=== PATIENT | female | born 1940 | race Caucasian/White ===

== ENCOUNTER 2021-10-05 14:55 | Inpatient (IN) | payer MEDICARE, OTHER ==
[~2021-10-05] VITALS: Ht 160 cm; Wt 59.0 kg
[~2021-10-05 14:55] MED LIST: ALEN70TA80 PO; CALC-1143 PO; DIVA-78 PO; DULO60CA64 PO; LEVO50TA8 PO; MELO-107 PO; MULT1TAB11 PO; OMEP40CA21 PO; OXYB-58 PO; QUET100T PO; RISP1TAB97 PO; TRAZ-182 PO; TRIA1TAB3 PO; ZOLP10TA6 PO
[2021-10-05] MEDS ORDERED: ONDA4TAB5 PO (15:56)
[2021-10-05] MEDS ORDERED: POLY15DR40 EACHEYE (15:56)
[2021-10-05] MEDS ORDERED: SENN-261 PO (15:56)
[2021-10-05] MEDS ORDERED: IBUP-1955 PO (15:56)
[2021-10-05] MEDS ORDERED: SUCR1ORA15 PO (15:56)
[2021-10-05] MEDS ORDERED: RISP0.2515 PO (15:56)
[2021-10-05] MEDS ORDERED: ZINC56.713 TP (15:56)
[2021-10-05] MEDS ORDERED: PANT40TA2 PO (15:56)
[2021-10-05] MEDS ORDERED: ACET-868 PO (15:56)
[2021-10-05] MEDS ORDERED: HYDR-3973 PO (15:56)
[2021-10-05] MEDS ORDERED: FLUT1DIS INH (15:56)
[2021-10-05] MEDS ORDERED: ALBU18HF2 IH (15:56)
[2021-10-05] MEDS ORDERED: CRAN3875 PO (15:56)
[2021-10-05] MEDS ORDERED: DOCU-141 PO (15:56)
[2021-10-05] MEDS ORDERED: MAGN400O6 PO (15:56)
[2021-10-05] MEDS ORDERED: AMIN30LI2 PO (15:56)
[2021-10-05] MEDS ORDERED: HYDROCODONE/APAP 5/325MG TABLET PO ONE (16:00)
[2021-10-05] MEDS ORDERED: IV NS 0.9% 1,000 ML BAG IV ONE (16:00)
[2021-10-05] MEDS ORDERED: HYDROCODONE/APAP 5/325MG TABLET ONE (16:10)
[2021-10-05 16:11] LABS: BASOPHILS # (AUTO) 0.1 K/uL (0.0-0.2); BASOPHILS % (AUTO) 0.9 % (0.0-2.0); EOSINOPHILS % (AUTO) 1.6 % (0.0-6.0); HEMATOCRIT 33 % (33-45); HEMOGLOBIN 10.9 g/dL (11.5-14.8); LYMPHOCYTES # (AUTO) 2.1 K/uL (0.8-4.8); LYMPHOCYTES % (AUTO) 27.1 % (20.0-44.0); MEAN CORPUSCULAR HGB CONC 33 g/dl (31.0-36.0); MEAN CORPUSCULAR VOLUME 93 fL (82-100); MONOCYTES # (AUTO) 1.3 K/uL (0.1-1.30); MONOCYTES % (AUTO) 16.2 % (2.0-12.0); NEUTROPHILS # (AUTO) 4.3 K/uL (1.8-8.9); NEUTROPHILS % (AUTO) 54.2 % (43.0-81.0); PLATELET COUNT (AUTO) 415 K/uL (150-450); RED BLOOD CELL COUNT(AUTO) 3.53 MIL/uL (4.0-5.2); WHITE BLOOD COUNT (AUTO) 7.9 K/uL (4.3-11.0)
[2021-10-05 16:31] LABS: ALANINE AMINOTRANSFERASE 17 U/L (12-78); ALBUMIN 2.8 g/dL (3.4-5.0); ALKALINE PHOSPHATASE 99 U/L (46-116); ASPARTATE AMINOTRANSFERASE 16 U/L (15-37); BILIRUBIN,DIRECT 0.1 mg/dL (0.0-0.2); BILIRUBIN,TOTAL 0.2 mg/dL (0.2-1.0); CARBON DIOXIDE 20 mmol/L (21-32); CHLORIDE 98 mmol/L (98-107); CREATININE 1.1 mg/dL (0.6-1.3); GLUCOSE 88 mg/dL (74-106); POTASSIUM 4.7 mmol/L (3.5-5.1); SODIUM SERUM 128 mmol/L (136-145); TOTAL PROTEIN, SERUM 8.4 g/dL (6.4-8.2); UREA NITROGEN, BLOOD 36 mg/dL (7-18)
[2021-10-05] MEDS ORDERED: MAGNESIUM HYDROXIDE 30 ML UDC PO PRN ×2 (17:30→18:00)
[2021-10-05] MEDS ORDERED: ACETAMINOPHEN 325 MG TABLET PO PRN ×2 (17:30→18:00)
[2021-10-05] MEDS ORDERED: SUCRALFATE 1 G/10 ML UDC PO SCH (17:30)
[2021-10-05] MEDS ORDERED: Z GUARD REMEDY 4 OZ OINT TP PRN (18:00)
[2021-10-05] MEDS ORDERED: ONDANSETRON 4 MG TAB.RAPDIS PO PRN (18:00)
[2021-10-05] MEDS ORDERED: MAG HYDROX/AL HYDROX/SIMETH 30 ML UDC PO PRN (18:00)
[2021-10-05] MEDS ORDERED: ONDANSETRON HCL/PF 4 MG/2 ML VIAL IVP PRN (18:00)
[2021-10-05] MEDS ORDERED: ALBUTEROL FS 2.5 MG/3 ML VIAL.NEB NEB PRN (21:00)
[2021-10-05] MEDS: IV NS 0.9% 1,000 ML IV PRN (21:19)
[2021-10-05] MEDS: SUCRALFATE 1 G/10 ML UDC PO SCH (21:47)
[2021-10-05] MEDS: QUETIAPINE FUMARATE 100 MG TABLET PO SCH (21:48)
[2021-10-05] MEDS: HYDROCODONE/APAP 5/325MG TABLET PO PRN (21:57)
[2021-10-05] MEDS: ZOLPIDEM TARTRATE 5 MG TABLET PO PRN (22:34)
[2021-10-06 05:00] VITALS: BP 101/80
[2021-10-06 07:16] LABS: CALCIUM, SERUM 9.1 mg/dL (8.5-10.1); CARBON DIOXIDE 21 mmol/L (21-32); CHLORIDE 105 mmol/L (98-107); GLUCOSE 87 mg/dL (74-106); MAGNESIUM 1.8 mg/dL (1.8-2.4); PHOSPHORUS 3.6 mg/dL (2.5-4.9); POTASSIUM 4.4 mmol/L (3.5-5.1); SODIUM SERUM 134 mmol/L (136-145); UREA NITROGEN, BLOOD 27 mg/dL (7-18)
[2021-10-06 07:20] LABS: BASOPHILS % (AUTO) 0.3 % (0.0-2.0); HEMATOCRIT 30 % (33-45); HEMOGLOBIN 9.9 g/dL (11.5-14.8); LYMPHOCYTES # (AUTO) 1.7 K/uL (0.8-4.8); LYMPHOCYTES % (AUTO) 21.8 % (20.0-44.0); MEAN CORPUSCULAR HGB CONC 33 g/dl (31.0-36.0); MEAN CORPUSCULAR VOLUME 94 fL (82-100); MONOCYTES # (AUTO) 1.1 K/uL (0.1-1.30); MONOCYTES % (AUTO) 13.8 % (2.0-12.0); NEUTROPHILS # (AUTO) 4.8 K/uL (1.8-8.9); NEUTROPHILS % (AUTO) 62.1 % (43.0-81.0); PLATELET COUNT (AUTO) 368 K/uL (150-450); WHITE BLOOD COUNT (AUTO) 7.8 K/uL (4.3-11.0)
[2021-10-06] MEDS: ALBUTEROL FS 2.5 MG/3 ML VIAL.NEB NEB SCH ×5 (07:35→20:41)
[2021-10-06] MEDS: SUCRALFATE 1 G/10 ML UDC PO SCH ×2 (08:08→12:14)
[2021-10-06] MEDS: PANTOPRAZOLE 40 MG TABLET.DR PO SCH (08:08)
[2021-10-06] MEDS: POLYVINYL ALCOHOL 15 ML BOTTLE EACHEYE SCH ×3 (08:43→16:56)
[2021-10-06] MEDS: PROSTAT (PYXIS) 30 ML UDC PO SCH (08:43)
[2021-10-06] MEDS: OXYBUTYNIN CHLORIDE ER 5 MG TAB PO SCH (08:44)
[2021-10-06] MEDS: SENNOSIDES 8.6 MG TABLET PO SCH (08:44)
[2021-10-06] MEDS: DOCUSATE SODIUM 100 MG CAPSULE PO SCH ×2 (08:44→16:55)
[2021-10-06] MEDS: risperiDONE 0.25 MG TABLET PO SCH (08:44)
[2021-10-06] MEDS: MULTIVIT W/MINERALS 1 TAB TABLET PO SCH (08:44)
[2021-10-06] MEDS: HYDROCODONE/APAP 5/325MG TABLET PO PRN ×2 (08:57→19:42)
[2021-10-06] MEDS ORDERED: Medication Not On Formulary EA (Cran/Vitc/Mannose/Inulin/Brom (Uti-Stat Liquid) 3,875 MG PO SCH (09:00)
[2021-10-06] MEDS: BUDESONIDE RESPULE INH 0.5 MG/2 ML AMPUL.NEB NEB SCH ×2 (09:00→17:00)
[2021-10-06] MEDS: ZINC OXIDE 56.7 GM TUBE TP SCH (09:53)
[2021-10-06] MEDS: IV NS 0.9% 1,000 ML IV PRN (14:18)
[2021-10-06] MEDS: SUCRALFATE 1 G TABLET PO SCH ×2 (16:55→21:49)
[2021-10-06] MEDS: ENSURE ENLIVE CHOC 237 ML CAN PO SCH (16:56)
[2021-10-06 17:38] VITALS: BP 91/55
[2021-10-06 20:00] VITALS: BP 112/58
[2021-10-06 21:00] VITALS: BP 112/58
[2021-10-06] MEDS: QUETIAPINE FUMARATE 100 MG TABLET PO SCH (21:49)
[2021-10-06] MEDS: ZOLPIDEM TARTRATE 5 MG TABLET PO PRN (21:57)
[2021-10-07] MEDS: ALBUTEROL FS 2.5 MG/3 ML VIAL.NEB NEB SCH ×4 (01:30→19:30)
[2021-10-07] MEDS: IV NS 0.9% 1,000 ML IV PRN ×2 (04:54→20:55)
[2021-10-07 05:00] VITALS: BP 101/65
[2021-10-07] MEDS: BUDESONIDE RESPULE INH 0.5 MG/2 ML AMPUL.NEB NEB SCH ×2 (08:04→17:00)
[2021-10-07] MEDS: DOCUSATE SODIUM 100 MG CAPSULE PO SCH ×2 (08:46→19:27)
[2021-10-07] MEDS: OXYBUTYNIN CHLORIDE ER 5 MG TAB PO SCH (08:46)
[2021-10-07] MEDS: SENNOSIDES 8.6 MG TABLET PO SCH (08:46)
[2021-10-07] MEDS: MULTIVIT W/MINERALS 1 TAB TABLET PO SCH (08:46)
[2021-10-07] MEDS: risperiDONE 0.25 MG TABLET PO SCH (08:46)
[2021-10-07] MEDS: SUCRALFATE 1 G TABLET PO SCH ×4 (08:49→21:57)
[2021-10-07] MEDS: PANTOPRAZOLE 40 MG TABLET.DR PO SCH (08:49)
[2021-10-07] MEDS: PROSTAT (PYXIS) 30 ML UDC PO SCH (08:49)
[2021-10-07] MEDS: ZINC OXIDE 56.7 GM TUBE TP SCH (09:00)
[2021-10-07] MEDS: POLYVINYL ALCOHOL 15 ML BOTTLE EACHEYE SCH ×3 (09:00→17:00)
[2021-10-07] MEDS: ENSURE ENLIVE CHOC 237 ML CAN PO SCH ×3 (10:05→17:00)
[2021-10-07] MEDS: HYDROCODONE/APAP 5/325MG TABLET PO PRN ×2 (11:00→19:59)
[2021-10-07 13:25] VITALS: BP 109/62
[2021-10-07 14:34] LABS: BASOPHILS % (AUTO) 0.3 % (0.0-2.0); EOSINOPHILS % (AUTO) 1.4 % (0.0-6.0); HEMATOCRIT 27 % (33-45); LYMPHOCYTES # (AUTO) 1.5 K/uL (0.8-4.8); LYMPHOCYTES % (AUTO) 21.2 % (20.0-44.0); MEAN CORPUSCULAR HGB CONC 34 g/dl (31.0-36.0); MEAN CORPUSCULAR VOLUME 94 fL (82-100); MONOCYTES # (AUTO) 1.1 K/uL (0.1-1.30); MONOCYTES % (AUTO) 15.9 % (2.0-12.0); NEUTROPHILS # (AUTO) 4.2 K/uL (1.8-8.9); NEUTROPHILS % (AUTO) 61.2 % (43.0-81.0); PLATELET COUNT (AUTO) 311 K/uL (150-450); RED BLOOD CELL COUNT(AUTO) 2.85 MIL/uL (4.0-5.2); WHITE BLOOD COUNT (AUTO) 6.9 K/uL (4.3-11.0)
[2021-10-07 14:43] LABS: CALCIUM, SERUM 8.3 mg/dL (8.5-10.1); CREATININE 0.9 mg/dL (0.6-1.3); MAGNESIUM 1.7 mg/dL (1.8-2.4); PHOSPHORUS 3.2 mg/dL (2.5-4.9); POTASSIUM 4.3 mmol/L (3.5-5.1)
[2021-10-07 16:07] VITALS: BP 103/64
[2021-10-07] MEDS ORDERED: Magnesium 1GM/D5W 100ML PREMIX 100 ML IV SCH (18:00)
[2021-10-07 20:00] VITALS: BP 115/60
[2021-10-07] MEDS: QUETIAPINE FUMARATE 100 MG TABLET PO SCH (21:57)
[2021-10-07 22:09] LABS: LYMPHOCYTES % (MANUAL) 23 % (16-48); MONOCYTES % (MANUAL) 10 % (0-11.0); NEUTROPHILS % (MANUAL) 67 (42-76)
[2021-10-08] MEDS: ALBUTEROL FS 2.5 MG/3 ML VIAL.NEB NEB SCH ×4 (01:30→14:28)
[2021-10-08 04:00] VITALS: BP 107/52
[2021-10-08 07:33] LABS: CALCIUM, SERUM 8.8 mg/dL (8.5-10.1); CARBON DIOXIDE 21 mmol/L (21-32); CHLORIDE 110 mmol/L (98-107); CREATININE 0.8 mg/dL (0.6-1.3); GLUCOSE 87 mg/dL (74-106); MAGNESIUM 1.7 mg/dL (1.8-2.4); POTASSIUM 3.2 mmol/L (3.5-5.1); SODIUM SERUM 139 mmol/L (136-145); UREA NITROGEN, BLOOD 18 mg/dL (7-18)
[2021-10-08] MEDS: ENSURE ENLIVE CHOC 237 ML CAN PO SCH ×3 (07:52→17:10)
[2021-10-08] MEDS: PANTOPRAZOLE 40 MG TABLET.DR PO SCH (07:58)
[2021-10-08] MEDS: SUCRALFATE 1 G TABLET PO SCH ×3 (07:58→17:09)
[2021-10-08 08:00] VITALS: BP 115/54
[2021-10-08] MEDS: SENNOSIDES 8.6 MG TABLET PO SCH (08:52)
[2021-10-08] MEDS: risperiDONE 0.25 MG TABLET PO SCH (08:53)
[2021-10-08] MEDS: DOCUSATE SODIUM 100 MG CAPSULE PO SCH ×2 (08:53→17:09)
[2021-10-08] MEDS: MULTIVIT W/MINERALS 1 TAB TABLET PO SCH (08:53)
[2021-10-08] MEDS: OXYBUTYNIN CHLORIDE ER 5 MG TAB PO SCH (08:53)
[2021-10-08] MEDS: HYDROCODONE/APAP 5/325MG TABLET PO PRN ×2 (08:56→18:03)
[2021-10-08] MEDS: ZINC OXIDE 56.7 GM TUBE TP SCH (08:57)
[2021-10-08] MEDS: POLYVINYL ALCOHOL 15 ML BOTTLE EACHEYE SCH ×3 (08:57→17:12)
[2021-10-08] MEDS: PROSTAT (PYXIS) 30 ML UDC PO SCH (09:13)
[2021-10-08] MEDS: BUDESONIDE RESPULE INH 0.5 MG/2 ML AMPUL.NEB NEB SCH ×2 (09:51→17:00)
[2021-10-08] MEDS ORDERED: POTASSIUM CHLORIDE 20 MEQ POWDER PACKET PO SCH (10:00)
[2021-10-08] MEDS ORDERED: MAGNESIUM OXIDE 400 MG TABLET PO ONE (10:00)
[2021-10-08] MEDS: IV NS 0.9% 1,000 ML IV PRN (10:47)
[2021-10-08] MEDS ORDERED: POTASSIUM CHLORIDE 20 MEQ TAB.PRT.SR PO SCH (12:00)
[2021-10-08 16:00] VITALS: BP 98/54
== END 2021-10-08 18:27 | DRG 640 ==
LOC: ER 14:57 → MEDSG1 20:31
PROVIDERS: ADMIT Internal Medicine; ATTEND Student in an Organized Health Care Education/Training Program
DX: E86.1 Hypovolemia (principal); G93.41 Metabolic encephalopathy; E87.1 Hypo-osmolality and hyponatremia; R62.7 Adult failure to thrive; J44.9 Chronic obstructive pulmonary disease, unspecified; I10 Essential (primary) hypertension; F41.9 Anxiety disorder, unspecified; F25.9 Schizoaffective disorder, unspecified; G89.29 Other chronic pain; M81.0 Age-related osteoporosis without current pathological fracture; Z79.51 Long term (current) use of inhaled steroids; Z79.899 Other long term (current) drug therapy; E88.09 Other disorders of plasma-protein metabolism, not elsewhere classified; F31.9 Bipolar disorder, unspecified; D63.8 Anemia in other chronic diseases classified elsewhere; E86.0 Dehydration
CPT/HCPCS: 36415; 71045-TC; 80048-TC; 80076-TC; 83605-TC; 83735-TC; 84100-TC; 84484-TC; 85025-TC; 85730-TC; 87040-TC; 87081-TC; 94799-TC; 97116-TC; 97530-TC; C9803; G0378; J3475; J7030

== ENCOUNTER 2022-09-02 11:24 | Inpatient (IN) | payer MEDICARE, OTHER ==
[~2022-09-02] VITALS: Ht 162.6 cm; Wt 56.7 kg
[~2022-09-02 11:24] MED LIST changes: +ACET-868 PO; +ALBU18HF2 IH; -ALEN70TA80 PO; +AMIN30LI2 PO; -CALC-1143 PO; +CRAN3875 PO; -DIVA-78 PO; +DOCU-141 PO; -DULO60CA64 PO; +FLUT1DIS INH; +HYDR-3973 PO; +IBUP-1955 PO; -LEVO50TA8 PO; +MAGN400O6 PO; -MELO-107 PO; -OMEP40CA21 PO; +ONDA4TAB5 PO; +PANT40TA2 PO; +POLY15DR40 EACHEYE; +RISP0.2515 PO; -RISP1TAB97 PO; +SENN-261 PO; +SUCR1ORA15 PO; -TRAZ-182 PO; -TRIA1TAB3 PO; +ZINC56.713 TP; -ZOLP10TA6 PO
--- NOTE | 2022-09-02 11:40 | NUR ---
ULCA ROBERTS FROM [facility] FOR GENERALIZED WEAKNESS AND HIP, LLE PAIN. NO RECENT INJURY ENDORSED. PT IS AOX4. PLACED IN BED, CONNECTED TO MONITOR, VSS, AWAITING MD ORDERS.
--- NOTE | 2022-09-02 12:02 | NUR ---
MOVE SHEET SUBMITTED.
--- NOTE | 2022-09-02 12:03 | NUR ---
IV ACCESS ESTABLISHED. 20G LEFT AC. BLOOD DRAWN INCLUDING CULTURES, SENT TO LAB.
--- NOTE | 2022-09-02 12:04 | NUR ---
COVID SWAB COLLECTED AND SENT TO LAB.
[2022-09-02 12:09] LABS: BASOPHILS % (AUTO) 0.4 % (0.0-2.0); EOSINOPHILS % (AUTO) 2.5 % (0.0-6.0); HEMATOCRIT 26 % (33-45); HEMOGLOBIN 8.2 g/dL (11.5-14.8); LYMPHOCYTES # (AUTO) 1.8 K/uL (0.8-4.8); LYMPHOCYTES % (AUTO) 28.8 % (20.0-44.0); MEAN CORPUSCULAR HGB CONC 32 g/dl (31.0-36.0); MEAN CORPUSCULAR VOLUME 91 fL (82-100); MONOCYTES # (AUTO) 0.7 K/uL (0.1-1.30); MONOCYTES % (AUTO) 11.4 % (2.0-12.0); NEUTROPHILS # (AUTO) 3.6 K/uL (1.8-8.9); NEUTROPHILS % (AUTO) 56.9 % (43.0-81.0); PLATELET COUNT (AUTO) 442 K/uL (150-450); RED BLOOD CELL COUNT(AUTO) 2.82 MIL/uL (4.0-5.2); WHITE BLOOD COUNT (AUTO) 6.4 K/uL (4.3-11.0)
[2022-09-02 12:18] LABS: CALCIUM, SERUM 8.7 mg/dL (8.5-10.1); CREATININE 1.1 mg/dL (0.6-1.3); POTASSIUM 4.2 mmol/L (3.5-5.1)
[2022-09-02 12:22] LABS: ALBUMIN 1.8 g/dL (3.4-5.0); BILIRUBIN,DIRECT 0.1 mg/dL (0.0-0.2); BILIRUBIN,TOTAL 0.1 mg/dL (0.2-1.0); TOTAL PROTEIN, SERUM 6.9 g/dL (6.4-8.2)
[2022-09-02] MEDS ORDERED: MELA3TAB41 PO (12:38)
[2022-09-02] MEDS ORDERED: MELO-107 PO (12:38)
[2022-09-02] MEDS ORDERED: ESCI10TA PO (12:38)
[2022-09-02] MEDS ORDERED: ACET-868 PO (12:38)
[2022-09-02] MEDS ORDERED: MIRT7.5T10 PO (12:38)
[2022-09-02] MEDS ORDERED: QUET25TA PO (12:38)
[2022-09-02] MEDS ORDERED: ONDA4TAB11 PO (12:38)
--- NOTE | 2022-09-02 12:55 | NUR ---
URINE SAMPLE OBTAINED AND SENT TO LAB.
[2022-09-02 13:40] LABS: COLOR,URINE LIGHT YELLOW (YELLOW); UGLUCOSE NEGATIVE (NEGATIVE)
[2022-09-02 13:41] LABS: BILIRUBIN,URINE SMALL (NEGATIVE)
[2022-09-02 13:43] LABS: LEUKOCYTE ESTERASE ,URINE MODERATE (NEGATIVE); NITRITE, URINE NEGATIVE (NEGATIVE); PROTEIN,URINE 2+ mg/dl (NEGATIVE); UROBILINOGEN,URINE 0.2 EU/dL (0.2)
[2022-09-02 13:48] LABS: BACTERIA,URINE Few /HPF (None Seen); RBC,URINE TOO NUMEROUS TO COUN /HPF (0-2); SQUAMOUS EPITHELIAL CELL,UR Few /HPF (None Seen); WBC,URINE TOO NUMEROUS TO COUN /HPF (0-3)
--- NOTE | 2022-09-02 14:44 | NUR ---
GOT BED 304-1 ADMITTING INFORMED.
--- NOTE | 2022-09-02 14:54 | NUR ---
REPORT GIVEN TO PADMINI JEFFREY.
[2022-09-02] MEDS ORDERED: ACETAMINOPHEN 325 MG TABLET PO PRN ×2 (15:00→15:30)
[2022-09-02] MEDS ORDERED: MAGNESIUM HYDROXIDE 30 ML UDC PO PRN ×2 (15:00→15:30)
[2022-09-02] MEDS ORDERED: ONDANSETRON 4 MG TAB.RAPDIS PO PRN (15:00)
[2022-09-02] MEDS ORDERED: IBUPROFEN 600 MG TABLET PO PRN (15:00)
--- NOTE | 2022-09-02 15:10 | NUR ---
MS ADMITTING RN NOTES: ADMITTED A 81YO FEMALE PT FROM ER DUE TO GENERAL WEAKNESS,DX OF UTI. PT ALERT ORIENTED X 4 WITH EPISODES OF CONFUSION/FORGETFULNESS. NO SOB OR CARDIAC DISTRESS NOTED. ON ROOM AIIR AND TOLERATING WELL. IV ACCESS ON LAC GAUGE 20 PATENT, INTACT AND INFUSING IV FLUID NS 1L @ 75ML/HR. PAIN 8/10 NORCO 10/325 GIVEN @1329. SKIN IS INTACT. BELONGINGS LISTED AND FILED IN PT'S CHART. ABDOMEN NOT DISTENDED.SOFT AND PALPABLE.VS STABLE. PROVIDED WATER AND CRACKERS. SAFETY MEASURES INITIATED: BED LOCKED AND IN LOWEST POSITION, SIDE RAILS UP X 2. CALL LIGHT AND BED SIDE TABLE IN EASY REACH. WILL MONITOR PT ACCORDINGLY.
[2022-09-02] MEDS: HYDROCODONE/APAP 10/325MG TABLET PO PRN ×2 (15:29→21:25)
[2022-09-02] MEDS ORDERED: ALBUTEROL FS 2.5 MG/3 ML VIAL.NEB NEB PRN ×2 (15:30)
[2022-09-02] MEDS ORDERED: Z GUARD REMEDY 4 OZ OINT TP PRN (15:30)
[2022-09-02] MEDS ORDERED: ONDANSETRON HCL/PF 4 MG/2 ML VIAL IVP PRN (15:30)
[2022-09-02] MEDS ORDERED: MAG HYDROX/AL HYDROX/SIMETH 30 ML UDC PO PRN (15:30)
[2022-09-02] MEDS: IV NS 0.9% 1,000 ML IV PRN (15:31)
[2022-09-02 16:00] VITALS: BP 107/52
[2022-09-02] MEDS: CEFTRIAXONE 1 G in IV D5W 50 ML IV SCH (16:24)
[2022-09-02] MEDS: SENNOSIDES 8.6 MG TABLET PO SCH (16:25)
[2022-09-02] MEDS: DOCUSATE SODIUM 100 MG CAPSULE PO SCH (16:25)
[2022-09-02] MEDS: SUCRALFATE 1 G/10 ML UDC PO SCH ×2 (16:49→21:09)
--- NOTE | 2022-09-02 18:36 | NUR ---
RN NOTES: INFORMED DR IF PT CAN HAVE A CHEMICAL PPX. PENDING RESULTS.
--- NOTE | 2022-09-02 18:57 | NUR ---
MS RN CLOSING NOTES: PT IN BED AWAKE, ALERTAND ORIENTED X 4 AND ABLE TO MAKE NEEDS KNOWN, WITH EPISODES OF FORGETFULNESS. NO SOB OR CARDIAC DISTRESS NOTED. ON ROOM AIR AND JOHN WELL. IV ACCESS ON LAC GAUGE 20 PATENT INTACT AND INFUSING NS 1L @75ML/HR. SAFETY MEASURES MAINTAINED: BED LOCKED AND IN LOWEST POSITION, SIDE RAILS UP X 2. CALL LIGHT IN EASY REACH. ENDORSED TO BOAT BUFFER PLASTIC RN FOR CONTINUITY OF CARE.
[2022-09-02 20:00] VITALS: BP 120/74
--- NOTE | 2022-09-02 20:05 | NUR ---
MS RN OPENING NOTES: PT IN BED AWAKE, ALERT AND ORIENTED X 4 AND ABLE TO MAKE NEEDS KNOWN, WITH EPISODES OF FORGETFULNESS. NO SOB OR CARDIAC DISTRESS NOTED. ON ROOM AIR AND TOLERATING WELL. IV ACCESS ON LAC #G 20 PATENT INTACT AND INFUSING NS 1L @75ML/HR. SAFETY MEASURES MAINTAINED: BED LOCKED AND IN LOWEST POSITION, SIDE RAILS UP X 2. CALL LIGHT IN EASY REACH.
[2022-09-02] MEDS: QUETIAPINE FUMARATE 25 MG TABLET PO SCH (21:10)
[2022-09-02] MEDS: MIRTAZAPINE 15 MG TABLET PO SCH (21:10)
--- NOTE | 2022-09-02 21:27 | NUR ---
RN NOTE PT PRN NORCO GIVEN FOR PAIN 12/29 TOLERATED WELL.
[2022-09-02] MEDS ORDERED: Medication Not On Formulary EA (Melatonin 6 MG) PO SCH (22:00)
[2022-09-02] MEDS: TEMAZEPAM 15 MG CAPSULE PO PRN (22:40)
--- NOTE | 2022-09-02 22:40 | NUR ---
RN NOTE PRN SLEEPING PIL PROVIDED AT PT REQUEST TOLERATED WELL.
--- NOTE | 2022-09-03 06:33 | NUR ---
MS RN CLOSING NOTES: PT IN BED AWAKE, ALERT AND ORIENTED X 4 AND ABLE TO MAKE NEEDS KNOWN, WITH EPISODES OF FORGETFULNESS. NO SOB OR CARDIAC DISTRESS NOTED. ON ROOM AIR AND TOLERATING WELL. IV ACCESS ON LAC#G 20 PATENT INTACT AND INFUSING NS @75ML/HR. SAFETY MEASURES MAINTAINED: BED LOCKED AND IN LOWEST POSITION, SIDE RAILS UP X 2. CALL LIGHT IN EASY REACH. WILL ENDORSE CARE TO DAY SHIFT NURSE.
--- NOTE | 2022-09-03 07:45 | NUR ---
MS RN OPENING NOTES: RECEIVED PT IN BED ASLEEP, EASILY ROUSED. A/OX 4 WITH PERIODS OF FORGETFULNESS OTHERWISE ABLE TO MAKE NEEDS KNOWN. ON RA WITH NO S/S OF SOB OR ACUTE DISTRESS NOTED. REPORTS GENERALIZED PAIN 2/10 AT THIS TIME. IV ACCESS ON LAC# 20 INFUSING NS @75ML/HR. SAFETY MEASURES MAINTAINED: BED LOCKED AND IN LOWEST POSITION, SIDE RAILS UP X 2, CALL LIGHT AND TABLE WITHIN EASY REACH, WILL CONT WITH PLAN OF CARE DURING SHIFT.
[2022-09-03] MEDS: SENNOSIDES 8.6 MG TABLET PO SCH ×2 (08:26→16:10)
[2022-09-03] MEDS: SUCRALFATE 1 G/10 ML UDC PO SCH (08:26)
[2022-09-03] MEDS: MELOXICAM 7.5 MG TABLET PO SCH (08:26)
[2022-09-03] MEDS: OXYBUTYNIN CHLORIDE ER 5 MG TAB PO SCH (08:27)
[2022-09-03] MEDS: ESCITALOPRAM OXALATE (10 MG) 10 MG TABLET PO SCH (08:27)
[2022-09-03] MEDS: DOCUSATE SODIUM 100 MG CAPSULE PO SCH ×2 (08:27→16:10)
[2022-09-03] MEDS: MULTIVIT W/MINERALS 1 TAB TABLET PO SCH (08:27)
[2022-09-03] MEDS: PANTOPRAZOLE 40 MG TABLET.DR PO SCH (08:27)
[2022-09-03 09:00] VITALS: BP 134/71
[2022-09-03 09:01] LABS: BASOPHILS % (AUTO) 0.3 % (0.0-2.0); EOSINOPHILS % (AUTO) 2.7 % (0.0-6.0); HEMATOCRIT 27 % (33-45); HEMOGLOBIN 8.4 g/dL (11.5-14.8); LYMPHOCYTES # (AUTO) 1.8 K/uL (0.8-4.8); LYMPHOCYTES % (AUTO) 26.8 % (20.0-44.0); MEAN CORPUSCULAR HGB CONC 32 g/dl (31.0-36.0); MEAN CORPUSCULAR VOLUME 91 fL (82-100); MONOCYTES # (AUTO) 0.8 K/uL (0.1-1.30); MONOCYTES % (AUTO) 12.4 % (2.0-12.0); NEUTROPHILS # (AUTO) 3.8 K/uL (1.8-8.9); NEUTROPHILS % (AUTO) 57.8 % (43.0-81.0); PLATELET COUNT (AUTO) 483 K/uL (150-450); RED BLOOD CELL COUNT(AUTO) 2.94 MIL/uL (4.0-5.2); WHITE BLOOD COUNT (AUTO) 6.5 K/uL (4.3-11.0)
[2022-09-03] MEDS: HYDROCODONE/APAP 5/325MG TABLET PO PRN ×3 (09:04→21:48)
[2022-09-03 09:14] LABS: CALCIUM, SERUM 8.7 mg/dL (8.5-10.1); CARBON DIOXIDE 23 mmol/L (21-32); CHLORIDE 106 mmol/L (98-107); CREATININE 0.9 mg/dL (0.6-1.3); GLUCOSE 87 mg/dL (74-106); MAGNESIUM 1.5 mg/dL (1.8-2.4); PHOSPHORUS 3.5 mg/dL (2.5-4.9); POTASSIUM 3.6 mmol/L (3.5-5.1); SODIUM SERUM 135 mmol/L (136-145); UREA NITROGEN, BLOOD 15 mg/dL (7-18)
--- NOTE | 2022-09-03 09:15 | NUR ---
RN NOTES: PT ASKED FOR PAIN MED FOR GENERALIZED BACK PAIN LEVEL 8-9/10, PT IS MEDICATED ORDERED.
[2022-09-03] MEDS: SUCRALFATE 1 G TABLET PO SCH ×3 (12:12→21:04)
[2022-09-03] MEDS: CEFTRIAXONE 1 G in IV D5W 50 ML IV SCH (14:44)
[2022-09-03 16:00] VITALS: BP 105/60
--- NOTE | 2022-09-03 19:06 | NUR ---
MS RN CLOSING NOTES; PT IN BED ASLEEP, EASILY ROUSED. A/OX 4 WITH PERIODS OF FORGETFULNESS OTHERWISE ABLE TO MAKE NEEDS KNOWN. ON RA WITH NO S/S OF SOB OR ACUTE DISTRESS NOTED. REPORTS GENERALIZED PAIN 2/10 AT THIS TIME. IV ACCESS ON LAC# 20 INFUSING NS @75ML/HR. KEPT PT CLEAN, DRY AND COMFORTABLE, DUE MEDS GIVEN, ALL NEEDS MET. SAFETY MEASURES MAINTAINED: BED LOCKED AND IN LOWEST POSITION, SIDE RAILS UP X 2, CALL LIGHT AND TABLE WITHIN EASY REACH, WILL ENDORSE TO PM SHIFT.
--- NOTE | 2022-09-03 19:35 | NUR ---
MS RN OPENING NOTES: PT IN BED AWAKE, ALERT AND ORIENTED X 4 AND ABLE TO MAKE NEEDS KNOWN, WITH EPISODES OF FORGETFULNESS. NO SOB OR CARDIAC DISTRESS NOTED. ON ROOM AIR AND TOLERATING WELL. IV ACCESS ON LAC#G 20 PATENT INTACT AND INFUSING NS @75ML/HR. SAFETY MEASURES MAINTAINED: BED LOCKED AND IN LOWEST POSITION, SIDE RAILS UP X 2. CALL LIGHT IN EASY REACH.
[2022-09-03 20:00] VITALS: BP 116/60
[2022-09-03] MEDS: QUETIAPINE FUMARATE 25 MG TABLET PO SCH (21:04)
[2022-09-03] MEDS: MIRTAZAPINE 15 MG TABLET PO SCH (21:04)
--- NOTE | 2022-09-03 21:55 | NUR ---
RN NOTE PRN NORCO GIVEN TOLERATED WELL.
[2022-09-03] MEDS: TEMAZEPAM 15 MG CAPSULE PO PRN (22:43)
--- NOTE | 2022-09-03 22:43 | NUR ---
RN NOTE PRN SLEEPING PILL GIVEN PER PT REQUEST TOLERATED WELL.
[2022-09-04 05:43] LABS: BASOPHILS % (AUTO) 0.2 % (0.0-2.0); EOSINOPHILS % (AUTO) 3.6 % (0.0-6.0); HEMATOCRIT 22 % (33-45); HEMOGLOBIN 7.1 g/dL (11.5-14.8); LYMPHOCYTES # (AUTO) 1.8 K/uL (0.8-4.8); LYMPHOCYTES % (AUTO) 35.7 % (20.0-44.0); MEAN CORPUSCULAR HGB CONC 32 g/dl (31.0-36.0); MEAN CORPUSCULAR VOLUME 92 fL (82-100); MONOCYTES # (AUTO) 0.8 K/uL (0.1-1.30); MONOCYTES % (AUTO) 15.9 % (2.0-12.0); NEUTROPHILS # (AUTO) 2.3 K/uL (1.8-8.9); NEUTROPHILS % (AUTO) 44.6 % (43.0-81.0); PLATELET COUNT (AUTO) 396 K/uL (150-450); RED BLOOD CELL COUNT(AUTO) 2.39 MIL/uL (4.0-5.2); WHITE BLOOD COUNT (AUTO) 5.1 K/uL (4.3-11.0)
[2022-09-04 06:08] LABS: CALCIUM, SERUM 8.3 mg/dL (8.5-10.1); CREATININE 0.7 mg/dL (0.6-1.3); POTASSIUM 3.6 mmol/L (3.5-5.1)
--- NOTE | 2022-09-04 06:28 | NUR ---
MS RN CLOSING NOTES PT IN BED ASLEEP EASILY WOKEN UP, ALERT AND ORIENTED X 3-4 ABLE TO MAKE NEEDS KNOWN, WITH EPISODES OF FORGETFULNESS. NO SOB OR CARDIAC DISTRESS NOTED. ON ROOM AIR AND TOLERATING WELL. IV ACCESS ON LAC#G 20 PATENT INTACT S/L AT THIS TIME. SAFETY MEASURES MAINTAINED: BED LOCKED AND IN LOWEST POSITION, SIDE RAILS UP X 2. CALL LIGHT IN EASY REACH. ALL DUE MEDS ADMINISTERED AND TOLERATED WELL. WILL ENDORSE CARE TO DAY SHIFT NURSE.
[2022-09-04 07:00] VITALS: BP 129/57
[2022-09-04] MEDS: HYDROCODONE/APAP 5/325MG TABLET PO PRN ×2 (08:53→12:57)
[2022-09-04] MEDS: MELOXICAM 7.5 MG TABLET PO SCH (08:55)
[2022-09-04] MEDS: SUCRALFATE 1 G TABLET PO SCH ×4 (08:55→21:52)
[2022-09-04] MEDS: DOCUSATE SODIUM 100 MG CAPSULE PO SCH ×2 (08:55→17:06)
[2022-09-04] MEDS: PANTOPRAZOLE 40 MG TABLET.DR PO SCH (08:55)
[2022-09-04] MEDS: OXYBUTYNIN CHLORIDE ER 5 MG TAB PO SCH (08:55)
[2022-09-04] MEDS: MULTIVIT W/MINERALS 1 TAB TABLET PO SCH (08:55)
[2022-09-04] MEDS: SENNOSIDES 8.6 MG TABLET PO SCH ×2 (08:55→17:06)
[2022-09-04] MEDS: ESCITALOPRAM OXALATE (10 MG) 10 MG TABLET PO SCH (08:55)
--- NOTE | 2022-09-04 15:00 | NUR ---
RN NOTES; IV ACCESS CHANGED TO L FA # 20
[2022-09-04] MEDS: CEFTRIAXONE 1 G in IV D5W 50 ML IV SCH (15:21)
[2022-09-04 16:00] VITALS: BP 103/57
--- NOTE | 2022-09-04 19:30 | NUR ---
noc rn note received patient in bed a/ox4. no s/s of apparent distress on room air. patient is c/o pain-- will medicate. left fa #20g running ns @75mls/hr. patient able to make needs known. safety in place-- bed in lowest, locked position, call light within reach, bed rails up X3, bed alarm in place. will continue with the plan of care for patient.
--- NOTE | 2022-09-04 19:32 | NUR ---
MS RN CLOSING NOTES: PT IN BED ASLEEP, EASILY ROUSED. A/OX 4 WITH PERIODS OF FORGETFULNESS OTHERWISE ABLE TO MAKE NEEDS KNOWN. ON RA WITH NO S/S OF SOB OR ACUTE DISTRESS NOTED. REPORTS GENERALIZED PAIN 2/10 AT THIS TIME. IV ACCESS ON L FA# 20 INFUSING NS @75ML/HR. KEPT PT CLEAN, DRY AND COMFORTABLE, DUE MEDS GIVEN, PAIN MANAGEMENT ADMINISTERED AND ASSESSED FOR EFFICACY, ALL NEEDS MET. SAFETY MEASURES MAINTAINED: BED LOCKED AND IN LOWEST POSITION, SIDE RAILS UP X 2, CALL LIGHT AND TABLE WITHIN EASY REACH, ENDORSED TO PM SHIFT.
[2022-09-04 20:00] VITALS: BP 141/77
--- NOTE | 2022-09-04 20:03 | NUR ---
noc rn note Patient c/o nausea. Given Zofran tab as ordered PRN. will monitor.
[2022-09-04] MEDS: HYDROCODONE/APAP 10/325MG TABLET PO PRN (20:08)
--- NOTE | 2022-09-04 20:10 | NUR ---
noc rn note Patient c/o 10/10 pain on her "tailbone" lower back. Given Parthenon 10 as ordered PRN. will re-assess.
[2022-09-04] MEDS: MIRTAZAPINE 15 MG TABLET PO SCH (21:53)
[2022-09-04] MEDS: QUETIAPINE FUMARATE 25 MG TABLET PO SCH (21:53)
[2022-09-04] MEDS: TEMAZEPAM 15 MG CAPSULE PO PRN (22:39)
--- NOTE | 2022-09-04 22:43 | NUR ---
noc rn note patient request for her restoril for sleep. Given as ordered PRN 15mg.
[2022-09-05] MEDS: IV NS 0.9% 1,000 ML IV PRN (04:19)
[2022-09-05 06:03] LABS: BASOPHILS % (AUTO) 0.2 % (0.0-2.0); HEMATOCRIT 22 % (33-45); LYMPHOCYTES # (AUTO) 1.9 K/uL (0.8-4.8); LYMPHOCYTES % (AUTO) 36.1 % (20.0-44.0); MEAN CORPUSCULAR HGB CONC 32 g/dl (31.0-36.0); MEAN CORPUSCULAR VOLUME 93 fL (82-100); MONOCYTES # (AUTO) 0.8 K/uL (0.1-1.30); MONOCYTES % (AUTO) 15.4 % (2.0-12.0); NEUTROPHILS # (AUTO) 2.3 K/uL (1.8-8.9); NEUTROPHILS % (AUTO) 44.3 % (43.0-81.0); PLATELET COUNT (AUTO) 367 K/uL (150-450); RED BLOOD CELL COUNT(AUTO) 2.38 MIL/uL (4.0-5.2); WHITE BLOOD COUNT (AUTO) 5.2 K/uL (4.3-11.0)
[2022-09-05 06:47] LABS: CALCIUM, SERUM 8.1 mg/dL (8.5-10.1); CARBON DIOXIDE 23 mmol/L (21-32); CHLORIDE 109 mmol/L (98-107); CREATININE 0.8 mg/dL (0.6-1.3); GLUCOSE 75 mg/dL (74-106); POTASSIUM 4.2 mmol/L (3.5-5.1); SODIUM SERUM 137 mmol/L (136-145); UREA NITROGEN, BLOOD 16 mg/dL (7-18)
--- NOTE | 2022-09-05 07:10 | NUR ---
noc rn closing all needs attended. all scheduled medications administered. no significant change with patient. will endorse to morning shift rn for continuity of care.
[2022-09-05] MEDS: SUCRALFATE 1 G TABLET PO SCH ×2 (07:37→12:08)
[2022-09-05] MEDS: PANTOPRAZOLE 40 MG TABLET.DR PO SCH (07:38)
--- NOTE | 2022-09-05 07:49 | NUR ---
MS RN OPENING NOTES: RECEIVED PT AWAKE IN BED, EASILY ROUSED. A/OX 4 WITH PERIODS OF FORGETFULNESS, ABLE TO MAKE NEEDS KNOWN. ON RA WITH NO S/S OF SOB OR ACUTE DISTRESS NOTED. IV ACCESS ON LAC# 20 INFUSING NS @75ML/HR. SAFETY MEASURES MAINTAINED: BED LOCKED AND IN LOWEST POSITION, SIDE RAILS UP X 2, CALL LIGHT AND TABLE WITHIN EASY REACH, WILL CONT WITH PLAN OF CARE DURING SHIFT.
[2022-09-05 08:00] VITALS: BP 106/54
[2022-09-05] MEDS: MULTIVIT W/MINERALS 1 TAB TABLET PO SCH (08:22)
[2022-09-05] MEDS: MELOXICAM 7.5 MG TABLET PO SCH (08:22)
[2022-09-05] MEDS: SENNOSIDES 8.6 MG TABLET PO SCH (08:23)
[2022-09-05] MEDS: ESCITALOPRAM OXALATE (10 MG) 10 MG TABLET PO SCH (08:23)
[2022-09-05] MEDS: DOCUSATE SODIUM 100 MG CAPSULE PO SCH (08:23)
[2022-09-05] MEDS: OXYBUTYNIN CHLORIDE ER 5 MG TAB PO SCH (08:25)
[2022-09-05] MEDS ORDERED: CEPH500C2 PO (08:34)
--- NOTE | 2022-09-05 14:31 | NUR ---
RN DISCHARGED NOTES PT DISCHARGED TO [facility] (SNF)IN STABLE CONDITION. A/O X4. V/S TAKEN, STABLE AND RECORDED. PT BELONGINGS CHECKED AND RECORDED. LFA G#20 REMOVED, CALLED AND REPORT GIVEN TO KENDALL BROWN, DIRECTOR OF NURSES EARLIER. [employer] CATHETER IN PLACE DRAINING CLEAR YELLOW URINE OUTPUT. G-TUBE IN PLACE AND PATENT. PT LEFT UNIT @ 1420 VIA GURNEY ACCOMPANIED BY 2 EMT'S.MD AND CHARGE NURSE AWARE OF DISCHARGE.
== END 2022-09-05 14:25 | DRG 689 ==
LOC: ER 11:41 → MED 14:50
PROVIDERS: ADMIT Internal Medicine; ATTEND Internal Medicine
DX: N39.0 Urinary tract infection, site not specified (principal); G93.41 Metabolic encephalopathy; N17.0 Acute kidney failure with tubular necrosis; J98.11 Atelectasis; F29 Unspecified psychosis not due to a substance or known physiological condition; I10 Essential (primary) hypertension; F41.9 Anxiety disorder, unspecified; F31.9 Bipolar disorder, unspecified; M16.12 Unilateral primary osteoarthritis, left hip; G62.9 Polyneuropathy, unspecified; M81.0 Age-related osteoporosis without current pathological fracture; G89.29 Other chronic pain; Z79.899 Other long term (current) drug therapy; D64.9 Anemia, unspecified; I70.0 Atherosclerosis of aorta; Z20.822 Contact with and (suspected) exposure to COVID-19; E88.09 Other disorders of plasma-protein metabolism, not elsewhere classified; R62.7 Adult failure to thrive
CPT/HCPCS: 36415; 71045-TC; 73502; 80048-TC; 80076-TC; 81001; 83605-TC; 83735-TC; 84100-TC; 85025-TC; 87040-TC; 87081-TC; 87086-TC; 97112-TC; 97116-TC; 97530-TC; A4223; C9803; G0378; J0696; J7030; J7060; Q0162

== ENCOUNTER 2024-01-09 15:35 | Inpatient (IN) | payer MEDICARE, OTHER ==
[~2024-01-09] VITALS: Ht 152.4 cm; Wt 56.7 kg
[~2024-01-09 15:35] MED LIST changes: -AMIN30LI2 PO; +CEPH500C2 PO; +ESCI10TA PO; -FLUT1DIS INH; +MELA3TAB41 PO; +MELO-107 PO; +MIRT7.5T10 PO; +ONDA4TAB11 PO; -ONDA4TAB5 PO; -QUET100T PO; +QUET25TA PO; -RISP0.2515 PO; -ZINC56.713 TP
[2024-01-09 16:55] LABS: BASOPHILS % (AUTO) 0.4 % (0.0-2.0); EOSINOPHILS # (AUTO) 0.2 K/uL (0.0-0.7); HEMATOCRIT 32 % (33-45); HEMOGLOBIN 10.6 g/dL (11.5-14.8); LYMPHOCYTES # (AUTO) 1.8 K/uL (0.8-4.8); LYMPHOCYTES % (AUTO) 34.7 % (20.0-44.0); MEAN CORPUSCULAR HEMOGLOBIN 33 PG (26.0-33.0); MEAN CORPUSCULAR HGB CONC 33 g/dl (31.0-36.0); MEAN CORPUSCULAR VOLUME 98 fL (82-100); MONOCYTES # (AUTO) 0.7 K/uL (0.1-1.30); NEUTROPHILS # (AUTO) 2.5 K/uL (1.8-8.9); NEUTROPHILS % (AUTO) 47.9 % (43.0-81.0); PLATELET COUNT (AUTO) 261 K/uL (150-450); RED BLOOD CELL COUNT(AUTO) 3.27 MIL/uL (4.0-5.2); WHITE BLOOD COUNT (AUTO) 5.1 K/uL (4.3-11.0)
[2024-01-09 17:03] LABS: CALCIUM, SERUM 8.9 mg/dL (8.5-10.1); CARBON DIOXIDE 28 mmol/L (21-32); CHLORIDE 105 mmol/L (98-107); CREATININE 0.7 mg/dL (0.6-1.3); GLUCOSE 81 mg/dL (74-106); POTASSIUM 4.1 mmol/L (3.5-5.1); SODIUM SERUM 136 mmol/L (136-145); UREA NITROGEN, BLOOD 24 mg/dL (7-18)
[2024-01-09 17:15] LABS: ALANINE AMINOTRANSFERASE 10 U/L (12-78); ALBUMIN 3.1 g/dL (3.4-5.0); ALKALINE PHOSPHATASE 37 U/L (46-116); ASPARTATE AMINOTRANSFERASE 12 U/L (15-37); BILIRUBIN,DIRECT 0.1 mg/dL (0.0-0.2); BILIRUBIN,TOTAL 0.3 mg/dL (0.2-1.0); LIPASE 41 U/L (16-77); NT-PRO BNP 632 pg/mL (0-125); TOTAL PROTEIN, SERUM 6.3 g/dL (6.4-8.2)
[2024-01-09] MEDS ORDERED: LIDO30AD10 TP (17:27)
[2024-01-09] MEDS ORDERED: MELO-107 PO (17:27)
[2024-01-09] MEDS ORDERED: MELA5TAB PO (17:27)
[2024-01-09] MEDS ORDERED: CYCL30DR EACHEYE (17:27)
[2024-01-09] MEDS ORDERED: OXYC-133 PO (17:27)
[2024-01-09] MEDS ORDERED: TRAM50TA2 PO (17:27)
[2024-01-09] MEDS ORDERED: DICL100G34 TP (17:27)
[2024-01-09] MEDS ORDERED: oxyCODONE/APAP (5/325 MG) 1 UDTAB TABLET ONE (17:54)
[2024-01-09] MEDS ORDERED: ONDANSETRON HCL/PF 4 MG/2 ML VIAL IVP PRN (18:00)
[2024-01-09] MEDS ORDERED: ACETAMINOPHEN 325 MG TABLET PO PRN (18:00)
[2024-01-09] MEDS ORDERED: MAGNESIUM HYDROXIDE 30 ML UDC PO PRN (18:00)
[2024-01-09] MEDS ORDERED: Z GUARD REMEDY 4 OZ OINT TP PRN (18:00)
[2024-01-09] MEDS: oxyCODONE/APAP (5/325 MG) 1 UDTAB TABLET PO PRN (18:00)
[2024-01-09] MEDS ORDERED: MAG HYDROX/AL HYDROX/SIMETH 30 ML UDC PO PRN (18:00)
[2024-01-09 18:22] LABS: APPEARANCE,URINE HAZY (CLEAR)
[2024-01-09 18:24] LABS: BILIRUBIN,URINE Negative (NEGATIVE); BLOOD, URINE Large Ery/uL (NEGATIVE); COLOR,URINE YELLOW (YELLOW); KETONES,URINE Negative (NEGATIVE); LEUKOCYTE ESTERASE ,URINE Small (NEGATIVE); NITRITE, URINE Negative (NEGATIVE); PROTEIN,URINE 30 mg/dl (NEGATIVE); UGLUCOSE Negative (NEGATIVE); UROBILINOGEN,URINE 0.2 EU/dL (0.2)
[2024-01-09 18:25] LABS: ADD URINE CULTURE YES; BACTERIA,URINE 1+ /HPF (None Seen); RBC,URINE 21-50 /HPF (0-2)
[2024-01-09 18:26] LABS: URINE AMORPHOUS PHOSPHATES Few /HPF (None Seen)
[2024-01-09] MEDS ORDERED: MELOXICAM 7.5 MG TABLET PO PRN (18:30)
[2024-01-09] MEDS: IV NS 0.9% 1,000 ML IV PRN (18:37)
[2024-01-09] MEDS: CEFTRIAXONE 1 G in IV D5W 50 ML IV SCH (19:03)
[2024-01-09 20:00] VITALS: BP 126/71; TEMP 97.3; O2SAT 96
[2024-01-09] MEDS: SUCRALFATE 1 G/10 ML UDC PO SCH (21:34)
[2024-01-09] MEDS ORDERED: Medication Not On Formulary EA (Melatonin 5 MG) PO SCH (22:00)
[2024-01-09] MEDS: ZOLPIDEM TARTRATE 5 MG TABLET PO PRN (23:14)
[2024-01-09] MEDS: TRAMADOL HCL 50 MG TABLET PO PRN (23:26)
[2024-01-10] VITALS: BP 110/71; TEMP 97.5; O2SAT 96
[2024-01-10 08:00] VITALS: BP 146/86; TEMP 99; O2SAT 96
[2024-01-10] MEDS: MULTIVIT W/MINERALS 1 TAB TABLET PO SCH (08:51)
[2024-01-10] MEDS: OXYBUTYNIN CHLORIDE ER 5 MG TAB PO SCH (08:52)
[2024-01-10] MEDS: DOCUSATE SODIUM 100 MG CAPSULE PO SCH (08:52)
[2024-01-10] MEDS: ESCITALOPRAM OXALATE (10 MG) 10 MG TABLET PO SCH (08:52)
[2024-01-10] MEDS: SENNOSIDES 8.6 MG TABLET PO SCH (08:52)
[2024-01-10] MEDS: PANTOPRAZOLE 40 MG TABLET.DR PO SCH (08:54)
[2024-01-10] MEDS ORDERED: Medication Not On Formulary EA (Cyclosporine (Restasis) 1 DROP) EACHEYE SCH (09:00)
[2024-01-10] MEDS ORDERED: Medication Not On Formulary EA (Cran/Vitc/Mannose/Inulin/Brom (Uti-Stat Liquid) 30 ML) PO SCH (09:00)
[2024-01-10] MEDS: DICLOFENAC TOPICAL 100 GM TUBE TP PRN (09:43)
[2024-01-10] MEDS: POLYVINYL ALCOHOL 15 ML BOTTLE EACHEYE SCH (09:43)
[2024-01-10 10:45] LABS: BASOPHILS % (AUTO) 0.3 % (0.0-2.0); EOSINOPHILS # (AUTO) 0.1 K/uL (0.0-0.7); HEMATOCRIT 31 % (33-45); HEMOGLOBIN 10.4 g/dL (11.5-14.8); LYMPHOCYTES # (AUTO) 1.6 K/uL (0.8-4.8); LYMPHOCYTES % (AUTO) 24.3 % (20.0-44.0); MEAN CORPUSCULAR HEMOGLOBIN 32 PG (26.0-33.0); MEAN CORPUSCULAR HGB CONC 33 g/dl (31.0-36.0); MEAN CORPUSCULAR VOLUME 97 fL (82-100); MONOCYTES # (AUTO) 0.7 K/uL (0.1-1.30); MONOCYTES % (AUTO) 10.6 % (2.0-12.0); NEUTROPHILS % (AUTO) 62.8 % (43.0-81.0); PLATELET COUNT (AUTO) 249 K/uL (150-450); RED BLOOD CELL COUNT(AUTO) 3.23 MIL/uL (4.0-5.2); WHITE BLOOD COUNT (AUTO) 6.4 K/uL (4.3-11.0)
[2024-01-10 10:55] LABS: CALCIUM, SERUM 8.8 mg/dL (8.5-10.1); CARBON DIOXIDE 28 mmol/L (21-32); CHLORIDE 106 mmol/L (98-107); CREATININE 0.8 mg/dL (0.6-1.3); GLUCOSE 155 mg/dL (74-106); MAGNESIUM 1.3 mg/dL (1.8-2.4); PHOSPHORUS 2.7 mg/dL (2.5-4.9); POTASSIUM 3.5 mmol/L (3.5-5.1); SODIUM SERUM 139 mmol/L (136-145); UREA NITROGEN, BLOOD 15 mg/dL (7-18)
[2024-01-10] MEDS: SUCRALFATE 1 G TABLET PO SCH (11:57)
[2024-01-10] MEDS: Magnesium 1GM/D5W 100ML PREMIX 100 ML IV SCH (11:58)
[2024-01-10 12:00] VITALS: BP 121/75; TEMP 99.1; O2SAT 96
[2024-01-10] MEDS: oxyCODONE/APAP (5/325 MG) 1 UDTAB TABLET PO PRN ×2 (12:02→18:31)
[2024-01-10 16:00] VITALS: BP 121/75; TEMP 99.1; O2SAT 96
[2024-01-10 20:00] VITALS: BP 118/59; TEMP 98.8; O2SAT 97
[2024-01-11 04:00] VITALS: BP 122/62; TEMP 98.5; O2SAT 98
[2024-01-11 09:29] VITALS: BP 137/83; TEMP 97.7; O2SAT 97
[2024-01-11 16:15] VITALS: BP 100/68; TEMP 97.9; O2SAT 95
[2024-01-11 20:00] VITALS: BP 140/75; TEMP 98.1; O2SAT 98
[2024-01-12 04:00] VITALS: BP 133/66; TEMP 97.8; O2SAT 99
[2024-01-12 08:00] VITALS: BP 152/81; TEMP 97.9; O2SAT 97
[2024-01-12] MEDS: ENSURE ENLIVE 237 ML LIQUID (VANILLA) PO SCH (08:31)
[2024-01-12 09:37] LABS: CHOLESTEROL 208 mg/dL (<200); HDL CHOLESTEROL 48 mg/dL (40-60); LDL 149 mg/dL (0-99); TRIGLYCERIDES 53 mg/dL (30-150)
[2024-01-12] MEDS ORDERED: CEPH500T PO (09:54)
[2024-01-12] MEDS ORDERED: SUCR1TAB31 PO (09:55)
== END 2024-01-12 15:02 | DRG 689 ==
LOC: ER 15:44 → TELE1 17:27 → MEDSG1 01-10 10:35
PROVIDERS: ADMIT Nurse Practitioner Acute Care; ATTEND Nurse Practitioner Acute Care
PROC: 05H933Z Insertion of Infusion Device into Right Brachial Vein, Percutaneous Approach (ICD-10-PCS; principal; 2024-01-11)
PROC: B54MZZA Ultrasonography of Right Upper Extremity Veins, Guidance (ICD-10-PCS; 2024-01-11)
DX: N39.0 Urinary tract infection, site not specified (principal); G93.41 Metabolic encephalopathy; E44.1 Mild protein-calorie malnutrition; E88.09 Other disorders of plasma-protein metabolism, not elsewhere classified; J44.9 Chronic obstructive pulmonary disease, unspecified; Z20.822 Contact with and (suspected) exposure to COVID-19; F31.9 Bipolar disorder, unspecified; G89.29 Other chronic pain; I10 Essential (primary) hypertension; M19.90 Unspecified osteoarthritis, unspecified site; Z79.899 Other long term (current) drug therapy; B96.89 Other specified bacterial agents as the cause of diseases classified elsewhere; Z68.24 Body mass index [BMI] 24.0-24.9, adult; F03.90 Unspecified dementia, unspecified severity, without behavioral disturbance, psychotic disturbance, mood disturbance, and anxiety; F99 Mental disorder, not otherwise specified; R79.89 Other specified abnormal findings of blood chemistry; I95.9 Hypotension, unspecified
CPT/HCPCS: 36415; 71045-TC; 80048-TC; 80061-TC; 80076-TC; 81001; 83690-TC; 83735-TC; 83880; 84100-TC; 84484-TC; 85025-TC; 87086-TC; 92526; 92611-TC; A4223; G0378; J0696; J3475; J7030; J7060

== ENCOUNTER 2024-12-16 14:41 | Inpatient (IN) | payer MEDICARE, OTHER ==
[~2024-12-16] VITALS: Ht 165.1 cm; Wt 54.9 kg
[~2024-12-16 14:41] MED LIST changes: -ALBU18HF2 IH; -CEPH500C2 PO; +CEPH500T PO; +CYCL30DR EACHEYE; +DICL100G34 TP; -HYDR-3973 PO; -IBUP-1955 PO; +LIDO30AD10 TP; -MELA3TAB41 PO; +MELA5TAB PO; -MIRT7.5T10 PO; -ONDA4TAB11 PO; +OXYC-133 PO; -QUET25TA PO; +SUCR1TAB31 PO; +TRAM50TA2 PO
[2024-12-16] MEDS ORDERED: ACETAMINOPHEN ES 500 MG TABLET ONE (15:52)
[2024-12-16] MEDS: ACETAMINOPHEN 325 MG TABLET PO ONE (15:54)
[2024-12-16] MEDS ORDERED: MORPHINE SULFATE INJ 4 MG/ML DISP.SYRIN ONE ×2 (16:04→20:27)
[2024-12-16] MEDS: MORPHINE SULFATE INJ 2 MG/ML DISP.SYRIN IV ONE ×2 (16:16→20:31)
[2024-12-16 16:25] LABS: ASPARTATE AMINOTRANSFERASE 19 U/L (15-37); NT-PRO BNP 2293 pg/mL (0-125); TOTAL PROTEIN, SERUM 7.0 g/dL (6.4-8.2)
[2024-12-16 18:23] LABS: CALCIUM, SERUM 9.2 mg/dL (8.5-10.1); CREATININE 0.9 mg/dL (0.6-1.3); SODIUM SERUM 137 mmol/L (136-145); UREA NITROGEN, BLOOD 14 mg/dL (7-18)
[2024-12-16 18:56] LABS: APPEARANCE,URINE SLIGHTLY CLOUDY (CLEAR); NITRITE, URINE NEGATIVE (NEGATIVE); UGLUCOSE NEGATIVE (NEGATIVE)
[2024-12-16 19:11] LABS: BLOOD, URINE TRACE Ery/uL (NEGATIVE); LEUKOCYTE ESTERASE ,URINE 3+ (NEGATIVE)
[2024-12-16 19:20] LABS: PLATELET COUNT (AUTO) 345 K/uL (150-450); RED BLOOD CELL COUNT(AUTO) 3.70 MIL/uL (4.0-5.2); RED CELL DISTRIBUTION WIDTH 15.2 % (11.5-15.0); WHITE BLOOD COUNT (AUTO) 5.7 K/uL (4.3-11.0)
[2024-12-16 19:22] LABS: ADD URINE CULTURE YES
[2024-12-16] MEDS: HYDROMORPHONE 1 MG/1 ML DISP.SYRIN IV ONE ×4 (21:59→23:55)
[2024-12-16] MEDS ORDERED: HYDROMORPHONE 1 MG/1 ML DISP.SYRIN ONE ×3 (22:00→23:51)
[2024-12-16] MEDS ORDERED: KETOROLAC TROMETHAMINE 15 MG/ML VIAL ONE (23:04)
[2024-12-16] MEDS: KETOROLAC TROMETHAMINE 15 MG/ML VIAL IV ONE (23:08)
[2024-12-16] MEDS ORDERED: CEFTRIAXONE 1 G VIAL ONE (23:11)
[2024-12-16] MEDS: CEFTRIAXONE 1GM BAG (ER ONLY) 50 ML IV ONE (23:19)
[2024-12-17] MEDS ORDERED: MECLIZINE HCL 25 MG TABLET PO PRN
[2024-12-17] MEDS ORDERED: ZOLPIDEM TARTRATE 5 MG TABLET PO PRN
[2024-12-17] MEDS ORDERED: MORPHINE SULFATE SR 30 MG TABLET.SA PO PRN
[2024-12-17] MEDS ORDERED: ACETAMINOPHEN 325 MG TABLET PO PRN
[2024-12-17 01:00] VITALS: BP 123/86; TEMP 99.7; O2SAT 98
[2024-12-17] MEDS ORDERED: ONDANSETRON HCL/PF 4 MG/2 ML VIAL IVP PRN (01:00)
[2024-12-17] MEDS ORDERED: Z GUARD REMEDY 4 OZ OINT TP PRN (01:00)
[2024-12-17] MEDS ORDERED: MAGNESIUM HYDROXIDE 30 ML UDC PO PRN (01:00)
[2024-12-17] MEDS ORDERED: MAG HYDROX/AL HYDROX/SIMETH 30 ML UDC PO PRN (01:00)
[2024-12-17] MEDS ORDERED: ENOX40DI SQ (01:02)
[2024-12-17] MEDS ORDERED: FLUT1BLS14 INH (01:02)
[2024-12-17] MEDS ORDERED: QUET50TA PO (01:02)
[2024-12-17] MEDS ORDERED: OMEP20CA15 PO (01:02)
[2024-12-17] MEDS ORDERED: AZEL6DRO5 EACHEYE (01:02)
[2024-12-17] MEDS ORDERED: LIDO73LI (01:02)
[2024-12-17] MEDS ORDERED: OMEG-167 PO (01:02)
[2024-12-17] MEDS ORDERED: LIDO1ADH43 TP (01:02)
[2024-12-17] MEDS ORDERED: VIT1CAPS44 PO (01:02)
[2024-12-17] MEDS ORDERED: AMIN30LI2 PO (01:02)
[2024-12-17] MEDS: IV NS 0.9% 1,000 ML IV SCH (01:34)
[2024-12-17] MEDS: ACETAMINOPHEN 325 MG TABLET PO PRN (01:40)
[2024-12-17 04:00] VITALS: BP 157/87; TEMP 98.8; O2SAT 97
[2024-12-17] MEDS ORDERED: ESCITALOPRAM OXALATE (10 MG) 10 MG TABLET PO SCH (06:00)
[2024-12-17] MEDS ORDERED: PANTOPRAZOLE 40 MG TABLET.DR PO SCH (07:30)
[2024-12-17] MEDS ORDERED: OMEPRAZOLE 20 MG CAPSULE.DR PO SCH (07:30)
[2024-12-17 08:00] VITALS: BP 157/87; TEMP 98.2; O2SAT 97
[2024-12-17] MEDS: PANTOPRAZOLE 40 MG TABLET.DR PO SCH (08:15)
[2024-12-17] MEDS: OXYBUTYNIN CHLORIDE ER 5 MG TAB PO SCH (08:15)
[2024-12-17] MEDS: ESCITALOPRAM OXALATE (10 MG) 10 MG TABLET PO SCH (08:15)
[2024-12-17] MEDS: DOCUSATE SODIUM 100 MG CAPSULE PO SCH (08:16)
[2024-12-17] MEDS: MULTIVITAMIN/LUTEIN/MINERALS 1 TAB PO SCH (08:16)
[2024-12-17] MEDS: SUCRALFATE 1 G TABLET PO SCH (08:16)
[2024-12-17] MEDS: LIDOCAINE 5% (PATCH) 1 EA PATCH TP SCH (08:17)
[2024-12-17] MEDS: HEPARIN SODIUM, PORCINE 5000 UNITS/1 ML VIAL SQ SCH (08:17)
[2024-12-17] MEDS: FLUTICASONE/VILANTEROL 1 EACH BLST.W.DEV IH SCH (08:18)
[2024-12-17] MEDS: HYDROMORPHONE 1 MG/1 ML DISP.SYRIN IV PRN (08:20)
[2024-12-17] MEDS ORDERED: OXYBUTYNIN CHLORIDE 5 MG TABLET PO SCH (09:00)
[2024-12-17] MEDS: PROSOURCE / PROSTAT (PYXIS) 30 ML UDC PO SCH (09:00)
[2024-12-17] MEDS ORDERED: Medication Not On Formulary EA (Azelastine Hcl 1 DROP) EACHEYE SCH (09:00)
[2024-12-17] MEDS ORDERED: ENOXAPARIN SODIUM 60 MG/0.6 ML DISP.SYRIN SQ SCH (09:00)
[2024-12-17] MEDS ORDERED: Medication Not On Formulary EA (Omega-3 Fatty Acids/Fish Oil (Fish Oil 1,000 Mg Softgel) PO SCH (09:00)
[2024-12-17] MEDS: oxyCODONE/APAP (5/325 MG) 1 UDTAB TABLET PO PRN ×2 (13:52→20:59)
[2024-12-17 16:00] VITALS: BP 130/64; TEMP 97.9; O2SAT 100
[2024-12-17] MEDS ORDERED: QUETIAPINE FUMARATE 25 MG TABLET PO SCH (18:00)
[2024-12-17] MEDS: QUETIAPINE FUMARATE 25 MG TABLET PO SCH (18:14)
[2024-12-17 20:00] VITALS: BP 147/79; TEMP 98.1; O2SAT 100
[2024-12-17] MEDS: CEFTRIAXONE 1 G in IV D5W 50 ML IV SCH (20:55)
[2024-12-17 22:10] LABS: PLATELET COUNT (AUTO) 273 K/uL (150-450); RED BLOOD CELL COUNT(AUTO) 3.37 MIL/uL (4.0-5.2); RED CELL DISTRIBUTION WIDTH 16.0 % (11.5-15.0); WHITE BLOOD COUNT (AUTO) 5.2 K/uL (4.3-11.0)
[2024-12-17 22:22] LABS: CALCIUM, SERUM 8.6 mg/dL (8.5-10.1); CREATININE 0.7 mg/dL (0.6-1.3); SODIUM SERUM 139.0 mmol/L (136-145); UREA NITROGEN, BLOOD 16.0 mg/dL (7-18)
[2024-12-18 04:00] VITALS: BP 142/84; TEMP 98.2; O2SAT 98
[2024-12-18 08:00] VITALS: BP 152/79; TEMP 98.1; O2SAT 100
[2024-12-18 16:00] VITALS: BP 123/84; TEMP 99.5; O2SAT 98
[2024-12-18 20:00] VITALS: BP 125/80; TEMP 99; O2SAT 98
[2024-12-19 04:00] VITALS: BP 154/86; TEMP 97.7; O2SAT 98
[2024-12-19 08:00] VITALS: BP 136/72; TEMP 98.1; O2SAT 99
[2024-12-19] MEDS ORDERED: CEPH-570 PO (11:38)
[2024-12-19] MEDS: LIDOCAINE 1% INJ 50 ML MDV IJ ONE (12:00)
[2024-12-19] MEDS: BUPIVACAINE 0.5 % PF 150 MG/30 ML VIAL IJ ONE (12:00)
[2024-12-19] MEDS: TRIAMCINOLONE ACETONIDE SUSP 40 MG/ML VIAL IM ONE (12:00)
[2024-12-19] MEDS: oxyCODONE/APAP (5/325 MG) 1 UDTAB TABLET PO PRN (12:37)
[2024-12-19 16:00] VITALS: BP 128/71; TEMP 98.4; O2SAT 96
[2024-12-19] MEDS: CLOTRIMAZOLE 1% 15 GM TUBE TP SCH (17:00)
[2024-12-19] MEDS: DICLOFENAC TOPICAL 100 GM TUBE TP PRN (18:13)
[2024-12-19 20:00] VITALS: BP 112/63; TEMP 98.2; O2SAT 96
[2024-12-20 04:00] VITALS: BP 127/86; TEMP 97.8; O2SAT 95
[2024-12-20 08:00] VITALS: BP 112/97; TEMP 98.1; O2SAT 98
== END 2024-12-20 14:50 | DRG 553 ==
LOC: ER 14:45 → MEDSG1 12-17 00:07
PROVIDERS: ADMIT Registered Nurse Psychiatric/Mental Health; ATTEND Nurse Practitioner Acute Care
PROC: 3E0U33Z Introduction of Anti-inflammatory into Joints, Percutaneous Approach (ICD-10-PCS; principal; 2024-12-20)
PROC: 3E0U3BZ Introduction of Anesthetic Agent into Joints, Percutaneous Approach (ICD-10-PCS; 2024-12-20)
DX: M17.0 Bilateral primary osteoarthritis of knee (principal); J15.9 Unspecified bacterial pneumonia; E44.1 Mild protein-calorie malnutrition; N39.0 Urinary tract infection, site not specified; K21.9 Gastro-esophageal reflux disease without esophagitis; J44.9 Chronic obstructive pulmonary disease, unspecified; E88.09 Other disorders of plasma-protein metabolism, not elsewhere classified; F31.9 Bipolar disorder, unspecified; I10 Essential (primary) hypertension; M25.562 Pain in left knee; M25.561 Pain in right knee; N32.89 Other specified disorders of bladder; Z68.20 Body mass index [BMI] 20.0-20.9, adult
CPT/HCPCS: 36415; 71045-TC; 73564-TC; 80048-TC; 80076-TC; 81001; 83880; 84484-TC; 85025-TC; 87040-TC; 87081-TC; 87086-TC; A4223; G0378; J0696; J1171; J1644; J1885; J2270; J3301; J3490; J7030; J7060

== ENCOUNTER 2025-05-09 18:05 | Emergency (ER) | payer MEDICARE, OTHER ==
[~2025-05-09] VITALS: Ht 165.1 cm; Wt 56.7 kg
[~2025-05-09 18:05] MED LIST changes: +AMIN30LI2 PO; +AZEL6DRO5 EACHEYE; +CEPH-570 PO; -CRAN3875 PO; -CYCL30DR EACHEYE; -DICL100G34 TP; +ENOX40DI SQ; +FLUT1BLS14 INH; +LIDO1ADH43 TP; -LIDO30AD10 TP; +LIDO73LI; -MELA5TAB PO; -MELO-107 PO; -MULT1TAB11 PO; +OMEG-167 PO; +OMEP20CA15 PO; -OXYC-133 PO; -PANT40TA2 PO; -POLY15DR40 EACHEYE; +QUET50TA PO; -SENN-261 PO; -SUCR1ORA15 PO; -TRAM50TA2 PO; +VIT1CAPS44 PO
[2025-05-09 18:44] LABS: PLATELET COUNT (AUTO) 225 K/uL (150-450); RED BLOOD CELL COUNT(AUTO) 3.43 MIL/uL (4.0-5.2); RED CELL DISTRIBUTION WIDTH 16.6 % (11.5-15.0); WHITE BLOOD COUNT (AUTO) 5.8 K/uL (4.3-11.0)
[2025-05-09 18:51] LABS: CALCIUM, SERUM 8.6 mg/dL (8.5-10.1); CREATININE 0.7 mg/dL (0.6-1.3); SODIUM SERUM 136.0 mmol/L (136-145); UREA NITROGEN, BLOOD 26.0 mg/dL (7-18)
[2025-05-09] MEDS ORDERED: FENTANYL PF 100MCG/2ML AMPUL ONE (19:01)
[2025-05-09] MEDS: FENTANYL PF 100MCG/2ML AMPUL IV ONE (19:07)
[2025-05-09 22:10] VITALS: BP 110/60; TEMP 98; O2SAT 99
== END 2025-05-09 22:11 ==
LOC: ER 18:17
DX: S80.01XA Contusion of right knee, initial encounter (principal); S80.02XA Contusion of left knee, initial encounter; S09.90XA Unspecified injury of head, initial encounter; I10 Essential (primary) hypertension; F31.9 Bipolar disorder, unspecified; J44.9 Chronic obstructive pulmonary disease, unspecified; M17.0 Bilateral primary osteoarthritis of knee; M81.0 Age-related osteoporosis without current pathological fracture; N32.81 Overactive bladder; Z79.51 Long term (current) use of inhaled steroids; Z79.899 Other long term (current) drug therapy; W01.0XXA Fall on same level from slipping, tripping and stumbling without subsequent striking against object, initial encounter; Y93.89 Activity, other specified; Y92.89 Other specified places as the place of occurrence of the external cause; Y99.9 Unspecified external cause status
CPT/HCPCS: 99285; 70450; 96374; 73564 ×2; 72128; 74176; 85025; 80048; 36415; J3010